=== PATIENT | male | born 1980 | race Two or more races ===

== ENCOUNTER 2018-03-19 17:53 | Emergency (ER) | payer OTHER ==
[2018-03-19 18:22] VITALS: BP 132/76; PULSE 65; TEMP 98.6; BMI 31.3
--- NOTE | 2018-03-19 18:23 | PDOC ---
Rapid Medical Evaluation Time Seen by Provider: 03/19/18 18:20 Medical Evaluation: Allergies Allergy/AdvReac Type Severity Reaction Status Date / Time amoxicillin [Amoxicillin] Allergy Swelling Verified 03/19/18 18:19 ibuprofen Allergy Rash Verified 03/19/18 18:19 naproxen [From Naprosyn] Allergy Rash Verified 03/19/18 18:19 03/19/18 18:20 Pt presents with one day of L knee swelling. 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 May have twisted knee at work Exam: Suprapatellar effusion to the L knee. Ambulatory. Orders: L knee x-ray Pt proceeds to the ED for further evaluation. Discharge Disposition - Diagnosis Left knee pain - Referrals - Patient Instructions - Post Discharge Activity
--- NOTE | 2018-03-19 18:27 | PDOC ---
History of Present Illness - General Chief Complaint: Edema Stated Complaint: SWOLLEN LT KNEE Time Seen by Provider: 03/19/18 18:20 History Source: Patient - History of Present Illness Occurred: reports: other Severity: Yes: moderate Lower Extremity Pain Location: left: knee Past History - Past Medical History Allergies/Adverse Reactions: Allergies Allergy/AdvReac Type Severity Reaction Status Date / Time amoxicillin [Amoxicillin] Allergy Swelling Verified 03/19/18 18:19 ibuprofen Allergy Rash Verified 03/19/18 18:19 naproxen [From Naprosyn] Allergy Rash Verified 03/19/18 18:19 Home Medications: Ambulatory Orders Acetaminophen [Tylenol -] 2 tab PO Q6H #30 tablet 03/19/18 Tramadol HCl 50 mg PO Q6H #10 tablet MDD 200 mg 03/19/18 - Suicide/Smoking/Psychosocial Hx Smoking History: Current every day smoker Number of Cigarettes Smoked Daily: 15 Information on smoking cessation initiated: No Hx Alcohol Use: No Substance Use Type: Heroin Review of Systems - Review of Systems Constitutional: No: Chills, Fever Musculoskeletal: Yes: Joint Pain, Joint Swelling *Physical Exam - Vital Signs Last Vital Signs Temp Pulse Resp BP Pulse Ox 98.6 F 65 20 132/76 95 03/19/18 18:19 03/19/18 18:19 03/19/18 18:19 03/19/18 18:19 03/19/18 18:19 - Physical Exam General Appearance: Yes: Appropriately Dressed, Mild Distress HEENT: positive: Normal Voice Neck: positive: Supple Respiratory/Chest: negative: Respiratory Distress Extremity: positive: Other (moderate swelling w/ ttp to anterior L knee, FROMI, no hot, red joint and no ttp/swelling to popliteal area) Integumentary: positive: Dry, Warm Neurologic: positive: Fully Oriented, Alert, Normal Mood/Affect Medical Decision Making - Medical Decision Making 03/19/18 18:27 37-year-old male, denies any past medical history, no IV drug use, here with spontaneous left knee pain and swelling 5 days that causes him to limp. 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 Has not been taking anything for pain. No fever or chills. No history of gout or septic joint. See exam L knee pain/swelling 2/2 possible twisting injury Possibly MSK, i.e strain, sprain, etc, unlikely gout and no e/o infection Xray neg for fx -KATY wrap placed -dc w/ pain control and ortho f/u as needed *DC/Admit/Observation/Transfer Diagnosis at time of Disposition: Left knee pain Qualifiers: Chronicity: acute Qualified Code(s): M25.562 - Pain in left knee - Discharge Dispostion Disposition: HOME Condition at time of disposition: Improved - Prescriptions Prescriptions: Acetaminophen [Tylenol -] 2 tab PO Q6H #30 tablet Tramadol HCl 50 mg PO Q6H #10 tablet MDD 200 mg - Referrals Referrals: Harry Ibarra MD [Staff Physician] - - Patient Instructions Printed Discharge Instructions: DI for Knee Pain Additional Instructions: The reason for your knee pain is unclear at this time, but could possibly be due to a sprain. Take medications as directed, use KATY, elevate and ice area for swelling If pain persist after 2 weeks, please follow-up with Dr. Ibarra of orthopedics - Post Discharge Activity
[2018-03-19] MEDS ORDERED: ACETAMINOPHEN 325 MG TABLET (FP) PO ONE (19:12)
[2018-03-19] MEDS ORDERED: traMADol HCL 50 MG TABLET PO ONE (19:12)
[2018-03-19] MEDS ORDERED: traMADol HCL 50 MG TABLET ONE (19:16)
[2018-03-19] MEDS ORDERED: ACETAMINOPHEN 325 MG TABLET (FP) ONE (19:16)
== END 2018-03-19 19:38 | disposition home or self-care (01) ==
LOC: JERFT 17:53
DX: M25.562 Pain in left knee (principal); F17.210 Nicotine dependence, cigarettes, uncomplicated
CPT/HCPCS: 73560-TC-LT-FY; 99281-25